=== PATIENT | female | born 1965 | race Caucasian/White ===

== ENCOUNTER → 2021-06-07 | Day surgery (SDC) | payer OTHER ==
[~2021-06-07] MED LIST: LEVOTHYROXINE25 MCG PO; PERCOCET 5-3251 EACH PO
[2021-06-07 13:02] LABS: BUN/CREATININE RATIO 14 (0-10)
== END | disposition home or self-care (01) ==
LOC: OR 11:36
PROVIDERS: Orthopaedic Surgery
DX: S52.542A Smith's fracture of left radius, initial encounter for closed fracture (principal); E03.9 Hypothyroidism, unspecified; Z88.2 Allergy status to sulfonamides; Z79.899 Other long term (current) drug therapy; W19.XXXA Unspecified fall, initial encounter
CPT/HCPCS: 73110; 76000; 80048; 93005; C1713; J0171; J0690; J1100; J2001; J2250; J2370; J2405; J2704; J2795; J3010; J7120